=== PATIENT | female | born 1985 | race Caucasian/White ===

== ENCOUNTER 2017-02-08 17:30 | Emergency (ER) | payer OTHER ==
[~2017-02-08] VITALS: Ht 165.1 cm; Wt 68.2 kg
[2017-02-08 17:46] VITALS: BP 117/81; PULSE 69; RESP 18; O2SAT 99
[2017-02-08 19:17] LABS: Mean Corpuscular Hemoglobin 28.1 pg (27.0-35.0); Mean Corpuscular Volume 80.5 fL (81-100)
--- NOTE | 2017-02-08 20:45 | ED.REPORT ---
HPI-Preg Under 20 Weeks Date of Service Feb 08, 2017 ED Provider: Bo Parks MD A 32 year old female with a recently diagnosed miscarriage presents to the ED with vaginal bleeding that began 4 days ago. Patient visited her TRAVELING PHLEBOTOMIST 6 days ago and was diagnosed with a miscarriage at 9 weeks. The severe bleeding began 4 days ago and has become increasingly web sizer over the past few days. She is now reportedly bleeding as much as her typical menstrual cycle. Associated symptoms include abdominal cramping, dizziness, lightheadedness, back pain and frequent clots. She has had a previous miscarriage. Patient is currently seeking removal of the material. Nursing Notes Stated Complaint: MISCARRIAGE, STILL BLEEDING Chief Complaint: & Delivery Nursing Notes Reviewed: Yes Allergies: Coded Allergies: No Known Allergies (Unverified , 02/08/17) Scheduled PRN Ibuprofen (Ibuprofen) 800 Mg Tablet 800 MG PO TID PRN PRN For Pain Ondansetron ODT (Zofran ODT) 4 Mg Tablet 4 MG PO Q4H PRN PRN For Nausea General Time Seen by Provider: 20:41 Chief Complaint Vaginal bleeding Hx Obtained From: Patient Arrived By: Walk-in Onset Occurred: 4 days ago Symptom Duration: Since onset Progression Since Onset: Gradually improving Location: : Abdomen lower Quality: Cramping Radiation: : None Severity: Current: Moderate Severity: Maximum: Moderate Associated with: Reports: Vaginal bleeding Pertinent Negative: Pt denies other symptoms Recent Healthcare: No recent hospitalization, Recent doctor visit Past Medical History Past Medical History Previous miscarriage Past Surgical History None reported Smoking History Unknown if Ever Smoker Social History Other Social History: Good social support, Local resident Ambulatory Status Independent Review of Systems Frequent clotting Constitutional: Denies: Chills, Fever GI: Reports: Abdominal pain Female: Reports: Vaginal bleeding - abnl, Vaginal discharge, Denies: (Miscarriage) Musculoskeletal: Reports: Back pain Neurologic: Reports: Dizziness, Lightheaded Complete sys rev & neg: except as marked. Physical Exam Initial Vital Signs Vital Signs (First) Date Time Temp Pulse Resp B/P Pulse Ox O2 Delivery O2 Flow Rate FiO2 02/08/17 17:46 37.3 69 18 117/81 99 Room Air Initial VS: Reviewed Neck: Supple, Non-tender, Full range of motion Extremities: Vascular intact, Neuro intact, No swelling, No tenderness Skin: Warm, Dry, No cyanosis Neurologic: Alert, Oriented, Nonfocal Psychiatric: Mood/affect normal, Behavior normal, Normal thought content General/Constitutional: Awake, Alert, No acute distress, Well appearing, Well developed Abdomen: Atraumatic, Soft, Non-tender, No guarding, No rebound Female Genitourinary: Breakfast Host present, Atraumatic, No bleeding (No active bleeding), Os closed FEMALE : Large clots present in the vault : Exam deferred Respiratory / Chest: Atraumatic, Breath sounds NL, Breath sounds = bilat, No respiratory distress Cardiovascular: Heart rate NL, Regular rhythm, Heart sounds NL, No murmurs Interpretation & Diagnostics Lab Results Interpretation Result Diagram: 02/08/17190902/08/171909 Test 02/08/17 19:10 02/08/17 19:39 White Blood Count 7.2th/mm3 (3.8-10.1) Red Blood Count 3.70mil/mm3 (3.90-5.20) Hemoglobin 10.4g/dL (12.0-15.6) Hematocrit 29.8% (35.0-46.0) Mean Corpuscular Volume 80.5fL (81-100) Mean Corpuscular Hemoglobin 28.1pg (27.0-35.0) Mean Corpuscular Hemoglobin Concent 34.9% (32.0-37.0) Red Cell Distribution Width 12.9% (12.3-15.4) Platelet Count 254bil/L (150-400) Sodium Level 137mEq/L (134-144) Potassium Level 3.9mEq/L (3.5-5.2) Chloride Level 102mEq/L (97-108) Carbon Dioxide Level 20mmol/L (18-29) Blood Urea Nitrogen 9mg/dL (6-20) Creatinine 0.54mg/dL (0.57-1.00) Estimat Glomerular Filtration Rate 189mL/min (>59) Glucose Level 118mg/dL (60-99) Calcium Level 9.4mg/dL (8.5-10.1) Total Bilirubin 0.3mg/dL (0.0-1.2) Aspartate Amino Transf (AST/SGOT) 14U/L (0-50) Alanine Aminotransferase (ALT/SGPT) 8U/L (0-32) Alkaline Phosphatase 64U/L (25-150) Total Protein 6.1g/dL (6.4-8.4) Albumin 3.8g/dL (3.4-5.0) HCG Beta Subunit 4919mIU/mL Hold Urias Top Tube Received (Received) Hold Urine Received (Received) US Focused OB Demise Exam Performed by: Radiologist Re-Eval/Medical Decision Med Decision/Clinical Course 32-year-old at 9 weeks complaining of miscarriage. She was told she was probably having a miscarriage several days ago. She reports persistent bleeding. Repeat ultrasound here confirms demise. HCG is 4000 year previously 17,000 from outside records. She has no active bleeding. I did discuss the case with TRAVELING PHLEBOTOMIST who recommends follow-up with them tomorrow to discuss possible D&C which patient would like. She is advised to return to merely should she have any worsening bleeding, fever, pain, nausea vomiting, since symptoms anemia, any other new or worsening symptoms. Re-Evaluation/Progress : Time of Eval: 21:29 Patient Status: Condition improved Consultation : Referral / Consult Name: Mia Huizar MD Call Returned at: 21:55 Explosives Mixer Operator: Agrees with eval, Agrees with plan Note: TRAVELING PHLEBOTOMIST Counseled Regarding: Diagnosis, Lab results, Need for follow-up, When/why to return to ED Discharge & Departure Primary Impression: Miscarriage Disposition: Home Discharge Condition All VS Reviewed: Yes Condition: Improved Patient Instructions: Miscarriage (ED) Additional Instructions: Thank you for trusting us with your care this evening. Your emergency department results including lab work is reassuring that there is no dangerous cause for concern at this time. Your ultrasound is indicative of a miscarriage and your symptoms will likely persist for the next few days. I am sorry for your loss. Take ibuprofen as directed for pain. Schedule a follow up appointment with your cloth framer (or see referral) (Dr. Huizar) in the next 1-2 days for D&C. Please return to the emergency department if you begin to develop any new or worsening symptoms including any worsening abdominal pain, nausea, vomiting, or severe bleeding. Referrals: NOPCP (PCP) Mia Huizar MD Scribe Attestation Portions of this note were transcribed by Sushant Stone. I, Dr. Parks personally performed the history, physical exam and medical decision-making; I reviewed and confirmed the accuracy of the information in the transcribed note. Signed by: Miller Rivas, 02/08/17 2210. Bo Parks MD Feb 08, 2017 20:45 SUSHANT STONE Feb 08, 2017 20:49
[2017-02-08] MEDS ORDERED: _Ondansetron ODT 4 mg Tablet PO PRN (21:20)
[2017-02-08] MEDS ORDERED: _HYDROcodone/APAP 5-325 mg Tablet PO PRN (21:20)
[2017-02-08] MEDS ORDERED: ONDA4TAB9 PO (21:22)
[2017-02-08] MEDS ORDERED: IBUP800T28 PO (22:17)
[2017-02-08 22:30] VITALS: BP 118/80; PULSE 67; RESP 16; O2SAT 99
--- NOTE | 2017-02-09 09:31 | DRSVH ---
+/- 7 days from 14 weeks to 15 weeks 6 days gestation, +/- 10 days from 16 weeks to 21 weeks 6 days g estation, +/- 2 weeks from 22 weeks to 27 weeks 6 days gestation, +/- 3 weeks for 28 weeks gestation or later. PROCEDURE: US OB<14 WKS+OB TRANSVAG INDICATIONS: 32-year-old woman with bleeding. possible miscarriage. OUTSIDE/PRIOR DATING DATA: Last menstrual period (LMP): Not available. LMP-based estimated date of delivery (SUSAN): Not available. First dating scan (date and location): This exam. Estimated date of delivery (SUSAN) from first dating scan: 09/17/2017. TECHNIQUE: Real-time scanning was performed of the fetus and maternal pelvic organs, with image documentation. Endovaginal scanning was also performed to better visualize the fetus and maternal ovaries. COMPARISON: None. FINDINGS: Embryo: There is a sac in the mid to initial cavity measuring 8 weeks 3 days based on the crown-rump length. No cardiac activity is present. OB-QUALITY CONTROL LAB TECHNICIAN Ultrasound Procedure Report Early Gestation [employer] Mean Gestational Sac Diameter: - Gestational Age (MGSD): - Celada Rump Length: 1.94 cm Gestational Age (CRL): 8 weeks, 3 days Summary Fetus Summary Heart tone: Not present Comments: A normal yolk sac is noted. No perigestational bleeds. Measurement variability in dating: +/- 4 weeks by LMP, +/- 7 days by mean sac diameter (use before 6 weeks gestation if crown-rump length not able to be measured), +/- 5 days by crown-rump length (up t o 8 weeks 6 days gestation), +/- 7 days by crown-rump length (from 9 weeks to 13 weeks 6 days gestati on). Maternal organs: There is a complex cyst in the right ovary measuring 1.5 cm. Left ovary appears norm al. Limited images through the kidneys demonstrate no hydronephrosis. IMPRESSION: 1. There is an IUP measuring 8 weeks 3 days based on the crown-rump length. No cardiac activity present. The ultrasound findings are compatible with demise. Recommend clinical correlation an d followup. 2. A 1.5 cm complex cyst in the right ovary, most likely a corpus luteum cyst. No significant discrepancy with the heating unit installer radiology preliminary report. Dictated by: Cory Moreno M.D. on 02/09/2017 at 9:26 Approved by: Cory Moreno M.D. on 02/09/2017 at 9:29
== END 2017-02-08 22:31 | disposition home or self-care (01) ==
LOC: SED 17:30
DX: O03.9 Complete or unspecified spontaneous abortion without complication (principal); Z3A.09 9 weeks gestation of pregnancy

== ENCOUNTER 2017-03-10 11:24 | Day surgery (SDC) | payer OTHER ==
[~2017-03-10] VITALS: Ht 165.1 cm; Wt 73.2 kg
[2017-03-10] VITALS (14 sets, daily range): BP systolic 110–127; BP diastolic 44–70; PULSE 69–94; RESP 15–21; O2SAT 94–100
[~2017-03-10 11:24] MED LIST: IBUP800T28 PO; ONDA4TAB9 PO
[2017-03-10] MEDS ORDERED: Rocuronium 10 mg/mL 5 mL Inj ONE (11:25)
[2017-03-10] MEDS ORDERED: Propofol 10,000 mCg/mL 20 mL Inj ONE (11:25)
[2017-03-10] MEDS ORDERED: EPHEDrine/NS 5 mg/mL 5 mL Syringe ONE (11:25)
[2017-03-10] MEDS ORDERED: Dexamethasone 4 mg/mL Inj ONE (11:25)
[2017-03-10] MEDS ORDERED: MetoCLOpramide 5 mg/mL 2 mL Inj ONE (11:25)
[2017-03-10] MEDS ORDERED: Oxytocin 10 Unit/mL Inj ONE (11:25)
[2017-03-10] MEDS ORDERED: Phenylephrine/NS 100 mCg/mL 10 mL Syringe IVPUSH ONE (11:25)
[2017-03-10] MEDS ORDERED: fentaNYL-PF 50 mCg/mL 2 mL Inj ONE ×2 (11:25→16:07)
[2017-03-10] MEDS ORDERED: Lactated Ringer's 1,000 ML IV ONE ×3 (11:34→14:20)
[2017-03-10] MEDS ORDERED: Clindamycin 900 mg/50 mL D5W Premix IV ONE (11:42)
[2017-03-10] MEDS ORDERED: LORazepam 1 mg Tablet PO PRN (11:50)
[2017-03-10] MEDS ORDERED: Ondansetron 2 mg/mL 2 mL Inj ONE (12:02)
[2017-03-10] MEDS ORDERED: Ondansetron 2 mg/mL 2 mL Inj IVPUSH ONE (12:05)
[2017-03-10 12:06] LABS: BASOPHILS % (AUTO) 0.5 % (0-3); EOSINOPHILS % (AUTO) 2.3 % (0-5); MONOCYTES % (AUTO) 6.5 % (4-12); Mean Corpuscular Hemoglobin 26.2 pg (27.0-35.0); Mean Corpuscular Volume 78.1 fL (81-100); NEUTROPHILS % (AUTO) 69.6 % (40-74); Platelet Count 345 bil/L (150-400)
[2017-03-10] MEDS ORDERED: Clindamycin Inj 900 MG in IV Premix 1 EACH IV ONE (12:10)
[2017-03-10] MEDS ORDERED: AMOX875T2 PO (12:27)
--- NOTE | 2017-03-10 13:15 | PCM.HPANE ---
Patient Data Date of Service: Mar 10, 2017 Surgeon Admitting Provider: Attending Provider:Mia Huizar MD Primary Care Physician:Nopashok Other Provider:Lydia Quiroz Anesthesia Reason for Visit Missed Ht/WT & BMI Height (Feet): 5 Height (Inches): 5 Weight (Kilograms): 69.8 Body Mass Index 25.00 Allergies Coded Allergies: No Known Allergies (Unverified , 02/08/17) Past Anesthesia History Anesthesia History: Positive for:: Anesthesia Reactions (failed spinal, high spinal) Diabetes History Hx Diabetes?: No MRSA MRSA: No Medications Hypertension Medication: No Home Meds Incl Beta Erica: No Active Scripts Ibuprofen 800 Mg [id number] Mg PO TID PRN For Pain #30 TABLET Prov:Bo Parks MD 02/08/17 Ondansetron ODT (Zofran ODT)4 Mg Tablet4 Mg PO Q4H PRN For Nausea #10 TABLET Prov:Bo Parks MD 02/08/17 Reported Medications Amoxicillin 875 Mg [id number] Mg PO BID Ref 0 03/10/17 History History of ENT Problems?: No HEENT History: Denies:: Abnormal Airway Denture Type: None Teeth Condition: Within Normal Limits Hx of Heart Problems?: No Cardiovascular History: Denies:: Congestive Heart Failure Hypertension Hx of Respiratory Problem?: No Respiratory History: Denies:: Tuberculosis Hx Neurologic Problems?: No Hx of GI Problems?: No Hx of Problems?: No Female Hx: Positive for:: Currently (here for missed , concern for molar ) Hx Musculoskeletal Problems?: No Hx of Psycho/Social Problems?: No Hx Surgeries?: Yes ( x3) Hx Diabetes: No Hx Alcohol Use: NoHx Substance Use: No Smoking Status: Unknown if Ever Smoker Stop/Bang Treated for Sleep Apnea?: No Do You Have a CPAP Machine?: No DAREK Risk Assessment: Low Risk, <3 Yes Risk Assessment Category Category 1A: Patient has history of documented sleep apnea, and HAS NOT received any narcotic, sedative or anesthesia administration during this stay. Category 1B: Patient has history of documented sleep apnea, and HAS received any narcotic , sedative or anesthesia administration during this stay Category 2: Patient has SUSPECTED Obstructive Sleep Apnea, and HAS received any narcotic , sedative or anesthesia administration during this stay. Category 3: Patient has SUSPECTED Obstructive Sleep Apnea and HAS NOT received narcotic, sedative or anesthesia administration during this stay. Category 4: Outpatient in Procedural Areas with known sleep apnea or who screen positive for High Risk via the STOP/BANG questionnaire. Exam Exam Vital Signs Vital Signs Date Time Temp Pulse Resp B/P Pulse Ox O2 Delivery O2 Flow Rate FiO2 03/10/17 11:42 36.8 75 18 127/61 100 Room Air General Appearance: Alert, Oriented X3, Cooperative HEENT/AIRWAY: MP 2, Neck Movement (Full), Mouth Opening (Wide) Lungs: Clear to Auscultation, Normal Air Movement Heart: Regular Rate/Rhythm, Normal S1, Normal S2 Meds/Labs/Diagnostics Admission Meds Current Medications Lactated Ringer's (Lr) 1,000 ml @ ud STK-MED ONCE IV Last administered on 03/10 11:34; Start 03/10/17 at 11:34; Stop 03/10/17 at 11:35; Status DC Clindamycin Phosphate/Dextrose (Cleocin Inj) 900 mg STK-MED ONCE IV Last administered on 03/10/17 12:01; Start 03/10/17 at 11:42; Stop 03/10/17 at 11:43 ; Status DC Ondansetron HCl (Zofran Inj) 4 mg ONCE ONCE IVPUSH Last administered on 12:08; Start 03/10/17 at 12:05; Stop 03/10/17 at 12:06; Status DC Doxycycline Hyclate (VibraTabs) 100 mg OT ONCE PO Last administered on 12:08; Start 03/10/17 at 12:05; Stop 03/10/17 at 12:06; Status DC Labs Test 03/10/17 11:54 White Blood Count 6.0th/mm3 (3.8-10.1) Red Blood Count 3.97mil/mm3 (3.90-5.20) Hemoglobin 10.4g/dL (12.0-15.6) Hematocrit 31.0% (35.0-46.0) Mean Corpuscular Volume 78.1fL (81-100) Mean Corpuscular Hemoglobin 26.2pg (27.0-35.0) Mean Corpuscular Hemoglobin Concent 33.5% (32.0-37.0) Red Cell Distribution Width 12.4% (12.3-15.4) Platelet Count 345bil/L (150-400) Neutrophils (%) (Auto) 69.6% (40-74) Lymphocytes (%) (Auto) 20.9% (14-46) Monocytes (%) (Auto) 6.5% (4-12) Eosinophils (%) (Auto) 2.3% (0-5) Basophils (%) (Auto) 0.5% (0-3) Plan Impression Patient chart reviewed, patient interviewed and anesthestic plan with risks, benefits, and alternatives discussed, and informed consent obtained. NPO per Anesth. Guidelines: Yes ASA Physical Status: ASA2 Mod Systemic Disease Anesthetic Plan: GA Bene/Risks/Altern/Consents: Yes HP Complete Prior to Induction: Yes Sudheer Dukes MD Mar 10, 2017 13:15
[2017-03-10] MEDS: OXYTOCIN IV SCH ×2 (14:06→16:35)
[2017-03-10] MEDS: LACTATED RINGER S IV SCH ×2 (14:06→16:35)
[2017-03-10] MEDS ORDERED: Lactated Ringer's 500 ML IV PRN (14:09)
[2017-03-10] MEDS ORDERED: Lactated Ringer's 1,000 ML IV SCH (14:09)
[2017-03-10] MEDS ORDERED: MetoCLOpramide 5 mg/mL 2 mL Inj IVPUSH PRN ×2 (14:10→16:25)
[2017-03-10] MEDS ORDERED: hydrALAZINE 20 mg/mL Inj IVPUSH PRN (14:10)
[2017-03-10] MEDS ORDERED: HYDROmorphone 1 mg/mL Inj IVPUSH PRN (14:10)
[2017-03-10] MEDS ORDERED: Ondansetron 2 mg/mL 2 mL Inj IVPUSH PRN ×2 (14:10→16:25)
[2017-03-10] MEDS ORDERED: Atropine 0.4 mg/mL Inj IVPUSH PRN (14:10)
[2017-03-10] MEDS ORDERED: Labetalol 5 mg/mL 4 mL Inj IV PRN (14:10)
[2017-03-10] MEDS ORDERED: Phenylephrine 10,000 mCg/mL Inj IVPUSH PRN (14:10)
[2017-03-10] MEDS ORDERED: Dexamethasone 4 mg/mL Inj IVPUSH PRN (14:10)
[2017-03-10] MEDS ORDERED: EPHEDrine Sulfate 50 mg/mL Inj IVPUSH PRN (14:10)
[2017-03-10] MEDS ORDERED: Bupivacaine-MPF 0.5% 30 mL Inj INFILTRATE ONE (14:30)
[2017-03-10] MEDS ORDERED: Bupivacaine-MPF 0.5% W/EPI 30 mL Inj INFILTRATE ONE (14:31)
--- NOTE | 2017-03-10 16:11 | CONS ---
[address] [address] CONSULTATION REPORT PATIENT: MAMTA ELKINS : 1985 MR#: [id number] ADMIT: 03/10/2017 JOB ID: [id number] DATE OF SERVICE: 03/10/2017 REQUESTED BY: Mia Huizar MD HISTORY OF PRESENT ILLNESS: I was asked to do an intraoperative consultation on the patient. She required a D and C because of a spontaneous . During the procedure the uterus was ruptured and a laparoscopy was performed. With suction there was some fat that was removed from the wall of the distal right medial sigmoid colon. I was asked to come into the operating room to visualize this area to see if there is any permanent injury that would require operative intervention. Cautery was not used. PHYSICAL EXAMINATION: There is an area that is about 5 to 6 or 7 mm wide on the right lateral side wall of the distal sigmoid colon. There is some mild ecchymosis but the underlying colonic wall appears entirely normal. There is no exposed mucosa. It does not appear to be at the site of a diverticulum. There is no evidence of ischemia. ASSESSMENT: I do not see any evidence of a full-thickness injury to the distal sigmoid colon wall. I do not think she needs to have a resection or at this point anything else done.
[2017-03-10] MEDS: fentaNYL-PF 50 mCg/mL 2 mL Inj IVPUSH PRN ×2 (16:12→16:57)
[2017-03-10] MEDS ORDERED: Alum-Mag Hydrox-Simeth 30 mL Suspension PO PRN (16:25)
[2017-03-10] MEDS ORDERED: Acetaminophen IV 1,000 MG in IV Premix 1 EACH IV PRN (16:25)
[2017-03-10] MEDS ORDERED: Senna-Docusate 8.6-50 mg Tablet PO PRN (16:25)
[2017-03-10] MEDS: Ampicillin Inj 2,000 MG in 0.9% Sodium Chloride 100 ML IV SCH ×3 (16:37→19:41)
--- NOTE | 2017-03-10 16:47 | PCM.ANEP1 ---
Post Anesthesia PACU Phase 1 Assessment Date of Service: Mar 10, 2017 Vital Signs Vital Signs Date Time Temp Pulse Resp B/P Pulse Ox O2 Delivery O2 Flow Rate FiO2 03/10/17 16:30 80 18 119/45 100 Nasal Cannula 3 03/10/17 16:20 85 17 114/52 100 Nasal Cannula 3 03/10/17 16:15 81 18 116/48 100 Simple Mask 8 03/10/17 16:10 86 21 119/65 100 Simple Mask 8 03/10/17 16:05 71 20 113/46 100 Simple Mask 8 03/10/17 16:00 37.1 73 20 116/44 100 Simple Mask 8 03/10/17 11:42 36.8 75 18 127/61 100 Room Air Anesthetic Administered: GA Level of Alertness: Sleepy, easy to arouse SCHOFIELD's with Equal Strength: Yes Pain: No Nausea or Vomiting: No CV Function & Hydration Stable: Yes Airway Device: Oxygen Delivery: Simple Mask Lungs: Normal Air Movement PACU Phase 2 Assessment Complications: No Follow up Care: N/A Patient Instructions Provided: N/A Sudheer Dukes MD Mar 10, 2017 16:47
[2017-03-10] MEDS: HYDROmorphone 1 mg/mL Inj IVPUSH PRN ×2 (17:15→22:22)
[2017-03-10] MEDS: SODIUM CHLORIDE 0.9% IV SCH ×2 (17:28→18:08)
[2017-03-10] MEDS: GENTAMICIN IV SCH ×2 (17:28→18:08)
[2017-03-10] MEDS: Lactated Ringer's 2,000 ML IV SCH (18:20)
--- NOTE | 2017-03-10 18:30 | NUR ---
Post op Transfer to [facility] room 1026 at 18:00 via stretcher. Alert and oriented. Transferred self to bed with minimal assist. Pitocin and gentamicin infusing in bilat AC PIVs. RA, complains of R shoulder pain, denies abd pain and nausea at this time. Lap sites with bandaids CDI, peripad has minimal sero-sang drainage. Family in room. Oriented pt and family to room and call light.
[2017-03-10] MEDS: Senna-Docusate 8.6-50 mg Tablet PO SCH (19:37)
[2017-03-10] MEDS: Ketorolac 15 mg/mL Inj IVPUSH PRN (19:37)
[2017-03-10] MEDS: Clindamycin Inj 900 MG in IV Premix 1 EACH IV SCH (19:40)
[2017-03-10] MEDS ORDERED: 0.9% Sodium Chloride 250 ML ONE (19:45)
[2017-03-11 00:33] VITALS: BP 110/65; PULSE 58; RESP 18; O2SAT 95
[2017-03-11] MEDS: Ampicillin Inj 2,000 MG in 0.9% Sodium Chloride 100 ML IV SCH ×4 (01:23→13:41)
[2017-03-11] MEDS: Clindamycin Inj 900 MG in IV Premix 1 EACH IV SCH ×2 (03:38→12:00)
[2017-03-11] MEDS: Ketorolac 15 mg/mL Inj IVPUSH PRN (03:48)
--- NOTE | 2017-03-11 04:36 | NUR ---
PAIN At beginning of shift, pt denied pain vaginally because she "couldn't feel it." She did complain of 7-9/10 pain throughout shift in shoulder, back, ribs, chest, and breast tenderness. When asked about chest pain, she pointed to multiple specific spots across and left and right chest, tender upon rubbing. Vital signs stable. Per protocol for chest pain, STAT EKG ordered. EKG appears to be normal, so signs of ischemia. Throughout night, pt received pain medications with various effectiveness, see EMAR. Pt continues to reports pain above her tolerable level of 6/10. Will continue to assess.
--- NOTE | 2017-03-11 05:08 | NUR ---
AMBULATION Pt dangled, then ambulated to BR to void multiple times through shift, once numbness wore off. Pt hunches over a little with a slight limp on r. side, appears to be related to muscle and bone pain pt is complaining of. Pt tolerate ambulation well with a steady gait, denied dizziness.
[2017-03-11 05:43] VITALS: BP 99/60; PULSE 84; RESP 16; O2SAT 98
[2017-03-11 06:54] LABS: BASOPHILS % (AUTO) 0.1 % (0-3); EOSINOPHILS % (AUTO) 0.1 % (0-5); MONOCYTES % (AUTO) 7.1 % (4-12); Mean Corpuscular Hemoglobin 25.5 pg (27.0-35.0); NEUTROPHILS % (AUTO) 84.1 % (40-74); Platelet Count 267 bil/L (150-400)
[2017-03-11 08:02] VITALS: BP 103/61; PULSE 72; RESP 16; O2SAT 98
[2017-03-11] MEDS: Lactated Ringer's 2,000 ML IV SCH (08:37)
[2017-03-11] MEDS: Senna-Docusate 8.6-50 mg Tablet PO SCH (10:18)
[2017-03-11 13:47] VITALS: BP 103/58; PULSE 78; RESP 18; O2SAT 96
[2017-03-11 13:48] VITALS: BP_SYST 104; BP_SYST 106; BP_DIAS 66; BP_DIAS 70; PULSE 77; PULSE 94
--- NOTE | 2017-03-11 14:13 | OP ---
[address] [address] OPERATIVE REPORT PATIENT: MAMTA ELKINS : 1985 MR#: [id number] ADMIT: 03/10/2017 JOB ID: [id number] DATE OF SURGERY: 03/10/2017 SURGEON: Mia Huizar MD LEAD ADVISOR: Gaby Tsang MD (shipping and receiving assistant was required for retraction, exposure and safe completion of the procedure and handling of the laparoscopic instruments). PREOPERATIVE DIAGNOSIS(ES): Septic , possible molar . POSTOPERATIVE DIAGNOSIS(ES): 1. Septic , possible molar . 2. Pelvic adhesive disease. PROCEDURE: 1. Suction dilatation and curettage. 2. Laparoscopic repair of right broad ligament perforation and bleeding. COMPLICATION: Uterine perforation with broad ligament laceration and bleeding. IMPLANTS: None. BLOOD PRODUCT ADMINISTRATION: None. BLOOD LOSS: 200 mL. ANESTHESIA: General. INTRAVENOUS FLUIDS: 1200 mL URINE OUTPUT: The bladder was straight cathed for 300 mL of urine prior to the procedure. SPECIMEN: Removed products of conception. Endometrial curettings. FINDINGS: Exam under anesthesia revealed an enlarged uterus, approximately 12-14 weeks in size, with some products of conception protruding through a 1 cm dilated cervix. Laparoscopic findings: Extensive adhesions extended from the pelvic sidewall to the adnexa bilaterally including the round ligament and adhesion extended in the right upper abdomen to the liver. The site of uterine perforation was noted in the right broad ligament with bleeding that was controlled with LigaSure. Hemostasis was ensured at the end of the procedure. CONSULTATION: Intraoperative consult to Dr. Kemar Sams, general surgeon. PROCEDURE IN DETAIL: After informed consent was obtained, the patient was taken to the operation room. She was placed under general anesthesia. She was prepped and draped in usual sterile fashion for pelvic procedure. Heavy weighted speculum was placed in the posterior vaginal vault. Anterior retractor was placed with good visualization of the cervix. Anterior lip of the cervix was grasped with single-tooth tenaculum. With the findings as mentioned above, tissue at the cervical os was removed with polyp forceps. Then, the cervix was further dilated to accommodate a size 12 suction curette. The suction curette was placed through the cervical os to the fundus and suction was started, maintaining suction between 50 and 60 mmHg. The cannula was rotated 360 degrees while retracting slowly until the tissue was suctioned. Continued to repeat the procedure until no more tissue was suctioned. Continue to repeat the procedure until at a point where increased resistance at the fundus was noted with increased depth of the uterine cavity which indicated a concern of uterine perforation. Evaluation of the uterine cavity with a polyp forcep that was passed, grasping intrauterine tissue that was gently brought out of the uterine cavity, noted to be in consistency which is consistent with a concern of uterine perforation, so decision was made to perform a laparoscopy. The abdomen was prepped and draped in usual sterile fashion for abdominal procedure. An umbilical skin incision was made in a vertical fashion that was extended down to the fascia. The fascia was grasped with two Allis clamps and was incised. The peritoneum was identified and grasped up to the incision and was incised with Metzenbaum scissors. A 5 mm trocar with a balloon was inserted confirming intraperitoneal location with no evidence of injury at entry. Examination of the pelvis was performed. Bleeding was noted from the right broad ligament. Additional two accessory right lower quadrant trocars were inserted via a 5 mm incision. The area of the pericolonic fat that was excised earlier in the procedure was identified. Then, the bleeding in the right broad ligament was controlled with LigaSure. Irrigation was followed confirming no evidence of further bleeding. The pelvis was thoroughly irrigated and cleared of any remaining clots. The posterior cul-de-sac was examined with no evidence of bleeding or injury. All sides of the uterine wall where examined with no evidence of any further perforations. Adnexa were examined and found to be hemostatic with no evidence of injury. Normal ovaries. Extensive adhesions and extended from the anterior side pelvic wall to the bilateral adnexa. Dr. Sams was consulted intraoperatively. He presented to the operating room, and visualized the area of the excised pericolonic fat as mentioned earlier in the procedure, confirming intact wall of the colon with no evidence of perforation and no further surgical intervention is needed. To complete the suction D and C part of the procedure, attention was turned back to the pelvis where sharp curette was introduced through the cervix under direct laparoscopic visualization confirming intrauterine location of the curette. Gentle curettage was performed in all four quadrants confirming complete evacuation of products of conception. The uterus was sounded to 9 cm at the end of the procedure. Again, the intra-abdominal pressure was decreased. No evidence of bleeding from the broad ligament. No further uterine perforation lesions were noted. The procedure was completed at this time. The abdomen was deflated, instruments were removed. The fascia was closed with 0-Vicryl at the umbilical incision site. All three skin incisions were closed with 4-0 Vicryl in subcuticular fashion. Steri-Strips were applied. All instrument, needle, sponge counts were correct x2. The patient tolerated the procedure well and was transferred to the recovery room in stable condition. The patient did receive 900 mg of clindamycin preop and will continue with clindamycin, gentamicin and ampicillin postop. Will observe patient overnight. IMia MD was present and scrubbed for the entire procedure.
[2017-03-11 16:43] VITALS: BP 101/63; PULSE 78; RESP 18; O2SAT 96
--- NOTE | 2017-03-11 18:03 | PCM.DIGYN ---
Surgical Discharge Instruction Dates of Hospitalization Date of Hospital Admission Providers Admitting Physician: Primary Care Physician: Milton Attending Physician: Mia Huizar MD Diagnosis at Time of Discharge Problems: (1) Miscarriage Status: Acute ICD Code: O03.9 (2) Sepsis following incomplete spontaneous Status: Acute ICD Code: O03.37 (3) S/P laparoscopic procedure Status: Acute ICD Code: Z98.890 Diet Discharge Diet: No restrictions Activity Discharge Activity-General: Balance rest and activity, No lifting >10 pounds for 4-6 weeks, No driving while taking narcotic, Other (no, sex, tampon , nor douching for 3-6 weeks ) Dressing and Incisional Care Hygiene: May shower (daily), DO NOT soak incision under water, NO bathtub, hot tub or whirlpool Follow Up Plan Follow-up Provider (F9): Mia Huizar MD Follow-up appointment: Weeks (One week then in six weeks) Call your provider for: Chills, Shortness of breath, Vomitting, Drainage at incision, Heavy vaginal bleeding, Wound redness, Increasing pain Mia Huizar MD Mar 11, 2017 18:03
[2017-03-11] MEDS ORDERED: DOCU-41 PO (18:06)
[2017-03-11] MEDS ORDERED: IBUP-1827 PO (18:06)
[2017-03-11] MEDS ORDERED: ASCO250T7 PO (18:17)
[2017-03-11] MEDS ORDERED: FERR-83 PO (18:17)
[2017-03-11] MEDS ORDERED: DOXY100C43 PO (18:17)
[2017-03-11] MEDS ORDERED: OXYC-466 PO (18:19)
[2017-03-11] MEDS ORDERED: ONDA4TAB9 PO (18:19)
--- NOTE | 2017-03-11 18:20 | NUR ---
Pain, IV Patient continues to have some generalized pain this shift, both in the lower and upper abdomen. MD aware, patient states pain is kept within a tolerable level with ordered pain medications. Patient IV came out while patient was ambulating, MD states IV can stay out in anticipation of imminent discharge with scheduled antibiotics okay to be withheld. MD discontinued antibiotics. Care is ongoing.
--- NOTE | 2017-03-11 18:21 | PCM.DC.OB ---
Obstetrical Discharge Summary Date of Service Mar 11, 2017 Date of hospital admission Date of Discharge: Mar 11, 2017 Providers Admitting Physician: Primary Care Physician: Milton Attending Physician: Maday Echeverria MD Problems: (1) Miscarriage Status: Acute ICD Code: O03.9 (2) Sepsis following incomplete spontaneous Status: Acute ICD Code: O03.37 (3) S/P laparoscopic procedure Status: Acute ICD Code: Z98.890 (4) Postoperative anemia due to acute blood loss Status: Acute ICD Code: D62 (5) Chronic anemia Status: Acute ICD Code: D64.9 Hospital Course: 32 Y presented with 1. Septic , possible molar . POD#1 S/P: Suction dilatation and curettage.complicated with uterine perforation and laparoscopic repair of right broad ligament perforation and bleeding. 2. Anemia, chronic with acute intraoperative blood loss, Hgb stable. asymptomatic. Orthostatic BP and HR WNL 3. PCOS , plan for out- pt work up and treatment. Postoperative day number 1, patient is ambulating, tolerating regular diet without nausea or vomiting and voiding without difficulty. Pain was well controlled. No chest pain. C/O headache improves with pain medications. General: Alert, Oriented X3 Lungs: Clear to Auscultation, Clear to Percussion Heart: Regular Rate/Rhythm, Normal S1, Normal S2 Abdomen: Soft , lax, no gaurding, appropriate tenderness, no rebound tenderness. Surgical Wound: Incisions General Appearance: Steri Strips, Sutures, Intact, Well Approximated, Incisions Healing, No Erythema, No Discharge Extremities: No tenderness/swelling, Lochia: normal. Vital Signs Date Time Temp Pulse Resp B/P Pulse Ox O2 Delivery O2 Flow Rate FiO2 03/11/17 16:43 36.7 78 18 101/63 96 Room Air 03/11/17 13:48 77 104/66 03/11/17 13:48 94 106/70 03/11/17 13:47 36.9 78 18 103/58 96 Room Air Laboratory Tests 72 Hours Test 03/10/17 11:54 03/11/17 06:30 03/11/17 13:30 White Blood Count 6.0th/mm3 (3.8-10.1) 11.2th/mm3 (3.8-10.1) Red Blood Count 3.97mil/mm3 (3.90-5.20) 2.90mil/mm3 (3.90-5.20) Hemoglobin 10.4g/dL (12.0-15.6) 7.4g/dL (12.0-15.6) 7.5g/dL (12.0-15.6) Hematocrit 31.0% (35.0-46.0) 22.9% (35.0-46.0) 22.5% (35.0-46.0) Mean Corpuscular Volume 78.1fL (81-100) 79.0fL (81-100) Mean Corpuscular Hemoglobin 26.2pg (27.0-35.0) 25.5pg (27.0-35.0) Mean Corpuscular Hemoglobin Concent 33.5% (32.0-37.0) 32.3% (32.0-37.0) Red Cell Distribution Width 12.4% (12.3-15.4) 12.3% (12.3-15.4) Platelet Count 345bil/L (150-400) 267bil/L (150-400) Neutrophils (%) (Auto) 69.6% (40-74) 84.1% (40-74) Lymphocytes (%) (Auto) 20.9% (14-46) 8.3% (14-46) Monocytes (%) (Auto) 6.5% (4-12) 7.1% (4-12) Eosinophils (%) (Auto) 2.3% (0-5) 0.1% (0-5) Basophils (%) (Auto) 0.5% (0-3) 0.1% (0-3) Sodium Level 140mEq/L (134-144) 138mEq/L (134-144) Potassium Level 4.1mEq/L (3.5-5.2) 4.2mEq/L (3.5-5.2) Chloride Level 102mEq/L (97-108) 104mEq/L (97-108) Carbon Dioxide Level 22mmol/L (18-29) 22mmol/L (18-29) Blood Urea Nitrogen 8mg/dL (6-20) 10mg/dL (6-20) Creatinine 0.55mg/dL (0.57-1.00) 0.80mg/dL (0.57-1.00) Estimat Glomerular Filtration Rate 185mL/min (>59) 120mL/min (>59) Glucose Level 85mg/dL (60-99) 98mg/dL (60-99) Calcium Level 9.5mg/dL (8.5-10.1) 8.3mg/dL (8.5-10.1) Total Bilirubin 0.6mg/dL (0.0-1.2) Aspartate Amino Transf (AST/SGOT) 23U/L (0-50) Alanine Aminotransferase (ALT/SGPT) 12U/L (0-32) Alkaline Phosphatase 70U/L (25-150) Total Protein 7.5g/dL (6.4-8.4) Albumin 4.5g/dL (3.4-5.0) Thyroid Stimulating Hormone (TSH) 1.140uIU/mL (0.450-4.500) Free Thyroxine 1.05ng/dL (0.82-1.77) HCG Beta Subunit 81.18mIU/mL Discharge Condition: stable. Disposition: home. Diet Discharge Diet: No restrictions Activity Discharge Activity-General: Balance rest and activity, No lifting >10 pounds for 4-6 weeks, No driving while taking narcotic, Other (no, sex, tampon , nor douching for 3-6 weeks ) Dressing and Incisional Care Hygiene: May shower (daily), DO NOT soak incision under water, NO bathtub, hot tub or whirlpool Follow Up Plan Follow-up Provider (F9): Maday Echeverria MD Follow-up appointment: Weeks (One week then in six weeks) Call your provider for: Chills, Shortness of breath, Vomitting, Drainage at incision, Heavy vaginal bleeding, Wound redness, Increasing pain . Ascorbic Acid (Vitamin C) 250 Mg Tab.chew 250 MG PO BID Prescribed by: MADAY ECHEVERRIA MD Docusate Sodium (Colace) 100 Mg Capsule 100 MG PO BID PRN PRN For Constipation Prescribed by: MADAY ECHEVERRIA MD Doxycycline Monohyd (Doxycycline Monohyd) 100 Mg Capsule 100 MG PO BID Prescribed by: MADAY ECHEVERRIA MD Ferrous Sulfate (Ferrous Sulfate) 325 Mg Tablet 325 MG PO BID Prescribed by: MADAY ECHEVERRIA MD Ibuprofen (Ibuprofen) 600 Mg Tablet 600 MG PO QID PRN PRN For Pain Prescribed by: MADAY CEHEVERRIA MD Ondansetron ODT (Zofran ODT) 4 Mg Tablet 4 MG PO Q4H PRN PRN For Nausea Prescribed by: MADAY ECHEVERRIA MD oxyCODONE-Acetaminophen 10-325 mg (oxyCODONE-Acetaminophen 10-325 mg) 1 Each Tablet 1-2 TABLET PO Q4H PRN PRN For Pain Prescribed by: MADAY ECHEVERRIA MD Discontinued Medications Amoxicillin (Amoxicillin) 875 Mg Tablet 875 MG PO BID (Reported) Last Taken: Unknown Dose on 03/09/17 Ibuprofen (Ibuprofen) 800 Mg Tablet 800 MG PO TID PRN PRN For Pain Prescribed by: Maday Hussein MD Mar 11, 2017 18:21
--- NOTE | 2017-03-11 19:50 | NUR ---
Discharge Pt. was discharged around 1947. Pt's IV was d/c'd. Pt. was given instructions. Significant other present. Belongings with pt.
--- NOTE | 2017-03-14 16:12 | PATH ---
SURGICAL PATHOLOGY Attending Physician:Mia Huizar CASE STATUS: Signed Out PATIENT NAME: MAMTA ELKINS. PID: [id number] : 1985 DATE COLLECTED:03/10/2017 00:00 SPECIMEN: 1: Products of conception 2: Endometrium, Curettage CLINICAL HISTORY: SEPTIC 1). PRODUCTS OF CONCEPTION 2). ENDOMETRIAL CURETTINGS FINAL DIAGNOSIS: 1. Products of Conception: Products of conception are identified in a background of inflammatory debris. 2. Endometrial Curettings: Portions of non-proliferative / interval phase endometrium with patchy regions of decidualized stromal change, scattered foci of products of conception, and inflammatory debris. Negative for cytologic atypia, glandular hyperplasia, and malignancy. ICD10: O02.1 GROSS DESCRIPTION: The specimen is received in two formalin filled containers labeled with the patient's name. 1). The specimen is labeled "products of conception" and consists of multiple portions of tissue which aggregate to 9.0 x 6.0 x 1.0 CM. No grossly recognizable parts are observed. Rep. sections are submitted in cassettes 1A, 1B, 1C, 1D, 1E. 2). The specimen is labeled "endometrial curettings" and consists of multiple portions of tissue which aggregate to 2.0 x 2.0 x 0.6 CM. The specimen is filtered and entirely submitted in cassette 2A. 03/11/2017MA ICD-9 CODES: CPT CODES: 1: 91483 2: 46048 Electronically Signed Out Therese Barnes MD [facility] Pathology [facility] [employer], [place] [address] Technical component performed at [facility], [address] [place] [address] Ave[address], [place], [address]
== END 2017-03-11 19:48 | disposition home or self-care (01) ==
LOC: SAS 11:24 → OSC 17:48 → SAS 03-11 19:48
PROVIDERS: ATTEND Obstetrics & Gynecology
DX: O03.37 Sepsis following incomplete spontaneous abortion (principal); O03.9 Complete or unspecified spontaneous abortion without complication; N73.9 Female pelvic inflammatory disease, unspecified; O03.34 Damage to pelvic organs following incomplete spontaneous abortion; N99.71 Accidental puncture and laceration of a genitourinary system organ or structure during a genitourinary system procedure; Y92.234 Operating room of hospital as the place of occurrence of the external cause; Y65.8 Other specified misadventures during surgical and medical care; D62 Acute posthemorrhagic anemia; D64.9 Anemia, unspecified
CPT/HCPCS: 36415; 49329; 59830; 80048; 80053; 84439; 84443; 84702; 85014; 85018; 85025; 86922; 88305; 93005; 96365; 96367; 96368; 96375; J0131; J0290; J1100; J1170; J1580; J1885; J2250; J2370; J2405; J2590; J2765; J3010; J3490; J7050; J7120

== ENCOUNTER 2017-03-17 08:25 | Emergency (ER) | payer OTHER ==
[~2017-03-17] VITALS: Ht 165.1 cm; Wt 68.2 kg
[~2017-03-17 08:25] MED LIST changes: +ASCO250T7 PO; +DOCU-41 PO; +DOXY100C43 PO; +FERR-83 PO; +IBUP-1827 PO; -IBUP800T28 PO; +OXYC-466 PO
[2017-03-17 08:31] VITALS: BP 88/59; PULSE 77; RESP 15; O2SAT 98
--- NOTE | 2017-03-17 08:44 | ED.REPORT ---
HPI-General Illness Date of Service Mar 17, 2017 ED Provider: Sherlyn Leger MD Patient is a 32 year old female who presents to the ED s/p a D/C 7 days ago after a miscarriage at 3 months gestation. During the procedure she had a bowel perforation. Today she complains of nausea, no BM since before the surgery, trouble passing gas, abdominal pain, hot sweats, mild confusion, trouble urinating, vaginal bleeding, and low back pain. Her abdominal pain is improved since her surgery but she now feels like she needs to have a BM but cannot. She denies fever, chills, vomiting, or any other symptoms. Patient was taking narcotic pain medication but has been taking only Ibuprofen for the past few days. She has also been taking Doxycycline, Zofran, and stool softeners. She is G5 (with complications)P3SA2. Nursing Notes Stated Complaint: NAUSEA,FATIGUE,NO APPETITE Chief Complaint: Female Abdominal Pain Nursing Notes Reviewed: Yes Allergies: Coded Allergies: No Known Allergies (Unverified , 02/08/17) Scheduled Ascorbic Acid (Vitamin C) 250 Mg Tab.chew 250 MG PO BID Doxycycline Monohyd (Doxycycline Monohyd) 100 Mg Capsule 100 MG PO BID Ferrous Sulfate (Ferrous Sulfate) 325 Mg Tablet 325 MG PO BID Scheduled PRN Docusate Sodium (Colace) 100 Mg Capsule 100 MG PO BID PRN PRN For Constipation Ibuprofen (Ibuprofen) 600 Mg Tablet 600 MG PO QID PRN PRN For Pain Ondansetron ODT (Zofran ODT) 4 Mg Tablet 4 MG PO Q4H PRN PRN For Nausea oxyCODONE-Acetaminophen 10-325 mg (oxyCODONE-Acetaminophen 10-325 mg) 1 Each Tablet 1-2 TABLET PO Q4H PRN PRN For Pain General Time Seen by MD: 08:40 Chief Complaint Multip medical complaints Hx Obtained From: Patient, Primary care provider Arrived By: Walk-in Sudden in Onset?: Yes Onset Occurred: 1 week ago Symptom Duration: Since onset Recent Healthcare: Recent doctor visit, Previous surgery Past Medical History Past Medical History Previous miscarriage compicated D&C 03/11/17 with bowel perforation A2 Past Surgical History Reports: (x3 ) Smoking History Unknown if Ever Smoker Social History Alcohol Use: Denies alcohol use Other Social History: Good social support, Local resident Ambulatory Status Independent Review of Systems +trouble passing gas, trouble urinating Full Review of Systems Constitutional: Denies: Chills, Fever GI: Reports: Abdominal pain, Constipation, Nausea, Denies: Vomiting Female: Reports: Vaginal bleeding - abnl Musculoskeletal: Reports: Back pain Skin: Reports Diaphoresis Neurologic: Reports: Confusion Complete sys rev & neg: except as marked. Physical Exam Vital Signs Vital Signs Date Time Temp Pulse Resp B/P Pulse Ox O2 Delivery O2 Flow Rate FiO2 03/17/17 14:26 36.7 76 16 126/57 98 Room Air 03/17/17 13:25 68 16 128/65 100 03/17/17 08:31 36.3 77 15 88/59 98 Room Air Initial VS: Reviewed Head / Eyes: Atraumatic, Normocephalic Neck: Full range of motion Skin: Warm, Dry Neurologic: Alert, Oriented, Nonfocal Psychiatric: Mood/affect normal, Behavior normal, Normal thought content General/Constitutional: Awake, Alert, No acute distress Respiratory / Chest: Breath sounds NL, Breath sounds = bilat, No respiratory distress Cardiovascular: Heart rate NL, Regular rhythm, Heart sounds NL Abdomen: No rebound surgical sites from laparoscopic assisted surgery healing well distended and moderately tympanitic Rectum / Perineum: No gross blood Small amount of small stool, easily mobile Interpretation & Diagnostics Lab Results Interpretation Result Diagram: 03/17/17 0953 03/17/17 0953 Test 03/17/17 09:53 03/17/17 10:12 White Blood Count 3.8th/mm3 (3.8-10.1) Red Blood Count 3.73mil/mm3 (3.90-5.20) Hemoglobin 9.5g/dL (12.0-15.6) Hematocrit 28.9% (35.0-46.0) Mean Corpuscular Volume 77.5fL (81-100) Mean Corpuscular Hemoglobin 25.5pg (27.0-35.0) Mean Corpuscular Hemoglobin Concent 32.9% (32.0-37.0) Red Cell Distribution Width 12.9% (12.3-15.4) Platelet Count 432bil/L (150-400) Neutrophils (%) (Auto) 63.9% (40-74) Lymphocytes (%) (Auto) 21.7% (14-46) Monocytes (%) (Auto) 9.7% (4-12) Eosinophils (%) (Auto) 3.9% (0-5) Basophils (%) (Auto) 0.5% (0-3) Sodium Level 139mEq/L (134-144) Potassium Level 4.4mEq/L (3.5-5.2) Chloride Level 103mEq/L (97-108) Carbon Dioxide Level 21mmol/L (18-29) Blood Urea Nitrogen 7mg/dL (6-20) Creatinine 0.65mg/dL (0.57-1.00) Estimat Glomerular Filtration Rate 152mL/min (>59) Glucose Level 91mg/dL (60-99) Calcium Level 9.4mg/dL (8.5-10.1) Magnesium Level 1.8mg/dL (1.6-2.6) Total Bilirubin 0.5mg/dL (0.0-1.2) Aspartate Amino Transf (AST/SGOT) 19U/L (0-50) Alanine Aminotransferase (ALT/SGPT) 26U/L (0-32) Alkaline Phosphatase 66U/L (25-150) Total Protein 7.3g/dL (6.4-8.4) Albumin 3.9g/dL (3.4-5.0) HCG Beta Subunit 9.97mIU/mL Urine Color Straw (YELLOW) Urine Appearance Hazy (CLEAR,HAZY) Urine pH 7.0 (5.0-8.0) Urine Specific [place] 1.010 (1.003-1.035) Urine Protein Negativemg/dL (NEG,TRACE) Urine Glucose (UA) Negativemg/dL (NEGATIVE) Urine Ketones Negativemg/dL (NEGATIVE) Urine Occult Blood Negative (NEGATIVE) Urine Nitrite Negative (NEGATIVE) Urine Bilirubin Negative (NEGATIVE) Urine Urobilinogen Normalmg/dL (NORMAL) Urine Leukocyte Esterase Negative (NEGATIVE) Urine RBC 0-2/hpf (0-2) Urine WBC 0-5/hpf (0-5) Urine Epithelial Cells Occasional/hpf (NONE-MOD) Urine Crystals None seen (NONE SEEN) Urine Bacteria None/hpf (NONE-FEW) Urine Hyaline Casts None/lpf (NONE) Urine Granular Casts None seen (NONE SEEN) Urine Waxy Casts None seen (NONE SEEN) Urine Red Blood Cell Casts None seen (NONE SEEN) Urine White Blood Cell Casts None seen (NONE SEEN) Urine Mucus None seen (None Seen) Urine Trichomonas None seen (NONE SEEN) Urine Yeast None (NONE SEEN) Urinalysis Comment None Urine Culture Reflexed Not indicated CT Abd / Pelvis Interpretation IMPRESSION: 1. There is irregular, hyperdense material, as well as fluid, within the uterine cavity. Differential diagnoses include retained products of conception or hematoma. Recommend pelvic ultrasound for further evaluation. 2. Enlarged right ovary with a 2.4 cm cyst which demonstrates subtle enhancement. Differential diagnosis included a corpus luteum cyst or less likely an abscess. 3. A 1.2 cm low density nodule in the left hepatic lobe, most likely a hepatic hemangioma or cyst. 4. Small left pleural effusion. 5. Soft tissue stranding in the umbilicus and subcutaneous air in the right lower anterior abdominal wall are likely related to recent endoscopic surgery. Recommend clinical correlation. The result was discussed with Dr. Leger prior to dication. Dictated by: Cory Moreno M.D. on 03/17/2017 at 10:52 Approved by: Cory Moreno M.D. on 03/17/2017 at 11:12 Study type: Abdominal CT IV contrast, Abdom CT oral contrast Interpretation / Wet Read by: Interpret - Radiologist, Discussed w radiologist Re-Eval/Medical Decision Time of Eval: 12:45 Re-Evaluation/Progress Note: Discussed plan for US and plan for discharge. Patient understands and agrees with plan. All questions addressed at this time. Patient Status: Condition improved Re-Evaluation/Progress Note: Pain was controlled. Reviewed ultrasound findings. There is some vascularity to the tissue left in the endometrium. Encouraged Lidia to discuss all of this with her ELECT[employer]ODU[employer] ENGINEER tomorrow in follow-up Consultation : Referral / Consult Name: Mia Huizar MD Consulted With: Surgeon Call Returned at: 12:19 Publications Distribution Clerk: Will see in office, Agrees with eval, Agrees with plan Note: Discussed pt's case with her surgeon. Would like a pelvic US and it is OK to d/c. Will see pt tomrrow any time after 8am Counseled Regarding: Diagnosis, Lab results, Need for follow-up, When/why to return to ED Discharge & Departure Primary Impression: Constipation Constipation type: unspecified constipation type Qualified Code: K59.00 - Constipation, unspecified Additional Impression: Retained products of conception Disposition: Home Discharge Condition All VS Reviewed: Yes Condition: Stable Additional Instructions: Thank you for entrusting us with your care. Dr. Huizar would like to see you. You may go to her office any time after 8am tomorrow. Your labs show no sign of infection today. Your CT scan shows what looks like a bit of placenta (products of conception) inside the uterus. Your horomone level is almost back down to 0. Dr Huizar will reveiw the results of your ultrasound with you tomorrow. You are consitpated. I've given you a bottle of magnesium citrate to drink at home. This pulls water into your colon and helps move all the stool along and out. I hope you feel better. Referrals: NOPCP (PCP) Scribe Attestation Portions of this note were transcribed by Kin Rivers. I, Dr. Leger, personally performed the history, physical exam, and medical decision making; I reviewed and confirmed the accuracy of the information in the transcribed note. Signed by: Miller Thomas, 03/17/17 Sherlyn Leger MD Mar 17, 2017 08:44 KIN RIVERS Mar 17, 2017 08:51
[2017-03-17] MEDS ORDERED: 0.9% Sodium Chloride 1,000 ML IV ONE (09:03)
[2017-03-17] MEDS ORDERED: HYDROmorphone 0.5 mg/0.5 mL iSecure Syringe IVPUSH PRN (09:05)
[2017-03-17] MEDS ORDERED: Ondansetron 2 mg/mL 2 mL Inj IVPUSH ONE (09:05)
[2017-03-17] MEDS ORDERED: Iohexol 300 mg/mL 30 mL Inj PO ONE (09:05)
[2017-03-17 10:30] LABS: BASOPHILS % (AUTO) 0.5 % (0-3); EOSINOPHILS % (AUTO) 3.9 % (0-5); MONOCYTES % (AUTO) 9.7 % (4-12); Mean Corpuscular Hemoglobin 25.5 pg (27.0-35.0); Mean Corpuscular Volume 77.5 fL (81-100); NEUTROPHILS % (AUTO) 63.9 % (40-74); Platelet Count 432 bil/L (150-400)
[2017-03-17 11:06] LABS: Magnesium 1.8 mg/dL (1.6-2.6)
[2017-03-17 11:16] LABS: APPEARANCE,URINE HAZY (CLEAR,HAZY); COLOR,URINE STRAW (YELLOW); OCCULT BLOOD,URINE NEGATIVE (NEGATIVE); UROBILINOGEN,URINE NORMAL (NORMAL)
--- NOTE | 2017-03-17 12:14 | DRSVH ---
PROCEDURE: CT ABDOMEN AND PELVIS WITH CONTRAST ([id number]) INDICATIONS: abdominal pain, D&C 1 week ago, complicated TECHNIQUE: After the administration of oral and intravenous contrast, 5 mm thick sections acquired from the diap hragms to the symphysis. 5 mm thick coronal and sagittal reformats were performed. For radiation do se reduction, the following was used: automated exposure control, adjustment of mA and/or kV accordi ng to patient size. COMPARISON: None. FINDINGS: Image quality: Excellent. ABDOMEN: Lung bases: Small left pleural effusion is present with mild left basilar atelectasis. Heart size is normal. There are bilateral breast prosthesis. There is a small hiatal hernia. Solid organs: There is a 1.2 cm low density nodule in the medial segment of the left hepatic lobe. T here is focal fat along the falciform ligament in liver. Liver and spleen are normal in size and enha ncement. Gallbladder is normal. Biliary system is non-dilated. Pancreas enhances normally. No adr enal nodules. Kidneys are normal in size and enhancement, without hydronephrosis. Peritoneum and bowel: Stomach, small bowel, and colon loops are normal in caliber and wall thickness . Appendix is normal. No free fluid or air. There is a moderate amount of stool in colon. Nodes and vessels: No retroperitoneal or mesenteric adenopathy. Aorta and inferior vena cava are no rmal in caliber. Miscellaneous: Mild stranding in the area of umbilicus. There is subcutaneous air in the right lower anterior abdominal wall. PELVIS: Genitourinary: There is fluid within the uterine cavity. There is irregular hyperdense material with in the uterus, which could represent retained product of conception or clot. The right ovary is enlarged. There is a 2.4 cm cyst in the right ovary which demonstrates subtle ring enhancement. Left ovary is unremarkable. Trace free fluid in the right adnexa. There is no pathologi roque free fluid in cul-de-sac. Bladder wall thickness is normal. Miscellaneous: No inguinal hernias or adenopathy. Bones: No suspicious bony lesions. No vertebral body compression fractures. IMPRESSION: 1. There is irregular, hyperdense material, as well as fluid, within the uterine cavity. Differential diagnoses include retained products of conception or hematoma. Recommend pelvic ultrasound for furth er evaluation. 2. Enlarged right ovary with a 2.4 cm cyst which demonstrates subtle enhancement. Differential diagno sis included a corpus luteum cyst or less likely an abscess. 3. A 1.2 cm low density nodule in the left hepatic lobe, most likely a hepatic hemangioma or cyst. 4. Small left pleural effusion. 5. Soft tissue stranding in the umbilicus and subcutaneous air in the right lower anterior abdominal wall are likely related to recent endoscopic surgery. Recommend clinical correlation. The result was discussed with Dr. Leger prior to dication. Dictated by: Cory Moreno M.D. on 03/17/2017 at 10:52 Approved by: Cory Moreno M.D. on 03/17/2017 at 11:12
[2017-03-17 13:25] VITALS: BP 128/65; PULSE 68; RESP 16; O2SAT 100
[2017-03-17 14:26] VITALS: BP 126/57; PULSE 76; RESP 16; O2SAT 98
--- NOTE | 2017-03-17 15:43 | DRSVH ---
PROCEDURE: US PELVIC SONOGRAM + TRANSVAGINAL SONOGRAM INDICATIONS: quantify fluid in uterus TECHNIQUE: Real-time scanning was performed of the pelvic organs, with image documentation. Additional endovagi nal scanning was necessary due to incomplete visualization of the adnexal and endometrial structures by transabdominal scanning. COMPARISON: [facility], CT, CT ABD PELVIS W CON, 03/17/2017, 11:22. FINDINGS: (orthogonal measurements) Uterus size: 7.04 cm, 4.88 cm, 4.97 cm Endometrium thickness: 5.40 mm Right ovary size: 4.14 cm, 2.75 cm, 2.28 cm Left ovary size: 4.00 cm, 1.94 cm, 3.89 cm Transabdominal scanning: Limited scanning through the kidneys shows no hydronephrosis. No pathologi c free abdominal or pelvic fluid. Endovaginal scanning: Uterus: Uterus is normal in size and appearance. Complex, heterogeneous endometrial mass is present measuring up to 18 mm in AP diameter. Color flow Doppler demonstrates significant hyperemia. Ovaries: Within normal physiologic limits, with small right ovarian cyst measuring roughly 25 mm.. IMPRESSION: Thickening of the endometrial complex which is heterogeneous and hyperemic. Retained pro ducts of conception cannot be excluded. Dr. Ag results by the sliver cutter at 1421 hrs. 03/17/2017. Dictated by: Romel OLIVER Interpreted: Ruddy Valle MD on 03/17/2017 at 14:36 Approved by: Ruddy Valle M.D. on 03/17/2017 at 15:40
== END 2017-03-17 14:27 | disposition home or self-care (01) ==
LOC: SED 08:25
DX: K59.00 Constipation, unspecified (principal); O02.1 Missed abortion
CPT/HCPCS: 36415; 74177; 76830; 76856; 80053; 81000; 83735; 84702; 85025; 96361; 96374; 96375; 99285; J1885; J2405; J7030; Q9967